=== PATIENT | male | born 1935 | race Caucasian/White ===

== ENCOUNTER 2016-12-30 22:26 | Emergency (ER) | payer MEDICARE, OTHER ==
[2016-12-31 00:47] LABS: HEMOGLOBIN 12.9 gm/dl (14.0-17.5); RED BLOOD COUNT 4.73 M/UL (4.20-5.50)
[2016-12-31 00:59] LABS: BUN/CREATININE RATIO 19 (0-10)
[2017-01-03 12:33] LABS: WHITE BLOOD COUNT 11.7 K/UL (4.5-11.0)
== END 2016-12-31 10:35 | disposition short-term general hospital (02) ==
LOC: ER1 22:26
PROVIDERS: Specialist/Technologist Athletic Trainer
DX: I95.1 Orthostatic hypotension (principal); I51.9 Heart disease, unspecified; Z90.49 Acquired absence of other specified parts of digestive tract; Z79.82 Long term (current) use of aspirin; Z79.02 Long term (current) use of antithrombotics/antiplatelets; Z79.899 Other long term (current) drug therapy
CPT/HCPCS: 36415; 70450; 71010; 80053; 81001; 82550; 82553; 83036; 83874; 83880; 84443; 84484; 85025; 87086; 93005; 99285